=== PATIENT | female | born 1985 | race Caucasian/White ===

== ENCOUNTER 2022-10-22 12:25 | Outpatient (AMB) | payer OTHER, SELFPAY ==
--- NOTE | 2022-10-22 12:22 | AM.OFFWIN_ITS ---
Intake Vital Signs 10/22/22 12:27 Weight 191 lb BP 122/82 Blood Pressure Location Lt brachial Position Sitting Pulse 66 Pulse Source Pulse Oximeter Temp 97.7 F Temp Source Temporal Artery Scan Pulse Oximetry (%) 98 Oxygen Delivery Method Room Air Intake Visit Reasons: [employer], Left ear pain, itch Intake Note: Patient here for bilat ear pain, sharp pain, itchy she states she does not have any discharge that comes out but when she puts a qtip inside it does come out wet which has been present for about 4 days. Patient Tobacco Use Status: Current everyday Tobacco user Allergies No Known Allergies Allergy (Verified 10/22/22 12:29) Do you need a note to return to daycare/school/sports/work: No HPI HPI Comments History of Present Illness Details This is a 37-year-old otherwise healthy female who presents to the office today for sick visit. Patient complaining of bilateral otalgia but but left greater than right. She does report some mild pain located behind her left ear and some pain with opening/closing her mouth. She denies any otorrhea. She denies any fevers or chills. She denies any URI symptoms including nasal congestion/rhinorrhea, sinus congestion/pressure, sore throat, or myalgias. She is otherwise feeling well without chest pain, shortness of breath, abdominal pain, or nausea/vomiting/diarrhea. [facility] Social History Patient Tobacco Use Status: Current everyday Tobacco user Review of Systems Const All systems reviewed & are unremarkable except as noted in HPI and below Reports no additional complaints Eyes Reports no additional complaints ENT Reports no additional complaints Card Reports no additional complaints Resp Reports no additional complaints GI Reports no additional complaints Reports no additional complaints Musc Reports no additional complaints Skin/Breast Reports system reviewed and no additional complaints, except as documented Neuro Reports no additional complaints Psych Reports no additional complaints Endo Reports no additional complaints Perfecto/Lymph Reports no additional complaints Aller/Immun Reports no additional complaints Physical Exam Vital Signs: Last Vital Signs Temp 97.7 F 10/22/22 12:27 Pulse 66 10/22/22 12:27 BP 122/82 10/22/22 12:27 Pulse Ox 98 10/22/22 12:27 Oxygen Delivery Method Room Air 10/22/22 12:27 Const General: cooperative, healthy appearing, no acute distress and well developed Orientation/consciousness: patient oriented x3 HEENT Other: Right tympanic membrane and external auditory canal are within normal limits without erythema, edema, or effusions. Left tympanic membrane is bulging and erythematous and external auditory canal is erythematous and edematous. There is very mild postauricular tenderness to palpation but no postauricular erythema, swelling, fluctuance, or mass. Head: Yes normal to inspection Ears: hearing grossly normal bilaterally General nose exam: Normal external nose present Face and sinus: Yes normal facial exam Mouth: Normal oral and palatal mucosa present Eyes General: appearance normal, both eyes and all related structures Pupils: Equal, round and reactive pupils present EOM: EOMs intact bilaterally Resp Effort & Inspection: normal respiratory effort and no respiratory distress Auscultation: clear to auscultation bilaterally Cardio Rate: regular rate Rhythm: regular rhythm Heart sounds: no gallops, no murmurs and no rubs Peripheral pulses: Peripheral pulses 2+ throughout GI Inspection: No distended Palpation (GI): Soft to palpation and nontender Auscultation: normal bowel sounds Skin General skin exam: no rashes or lesions noted Neuro General: patient oriented x3 Cranial nerves: Yes CN's II-XII intact bilaterally and Yes Equal, round and reactive pupils present Gait exam (Neuro): Normal gait present Motor exam (neuro): 5/5 motor strength present throughout Extrem General: Yes normal to inspection, Yes full ROM and Yes no clubbing, cyanosis or edema Psych Appearance: grossly normal Mental Status: mental status grossly normal Assessment & Plan Assessment & Plan (1) Acute otitis media, left: Code(s): H66.92 - Otitis media, unspecified, left ear Plan: This is a 37-year-old otherwise healthy female who presents with otalgia, left greater than right. On physical examination, her left TM is erythematous and bulging in her left external auditory canal is erythematous and slightly edematous. She does have mild postauricular tenderness to palpation but no postauricular swelling, erythema, fluctuance, or mass. Acute mastoiditis was considered given postauricular tenderness to palpation but is considered significantly less likely given no swelling, erythema, fluctuance, or mass and no evidence of systemic infection. History and physical most consistent with acute otitis media of the left ear. Patient's vital signs are stable and she is overall nontoxic appearing. Patient is safe to be discharged home. She was sent home on p.o. amoxicillin-clavulanate twice daily times 10 days. Patient advised to proceed directly to the emergency room if she were to develop any fevers/chills, systemic symptoms, postauricular swelling/erythema, or worsening postauricular pain. Patient verbalized understanding and she was in agreement with the plan. Medications: New amoxicillin-pot clavulanate 875-125 mg 1 tab PO BID 20 tabs 0RF Coding Level of Care Code New Pt Level 3 (78077) Diagnoses Acute otitis media, left H66.92
[2022-10-22 12:27] VITALS: BP 122/82; PULSE 66; TEMP 36.5; O2SAT 98
== END 2022-10-22 13:01 | disposition home or self-care (01) ==
PROVIDERS: Visit Provider Physician Assistant Medical
DX: H66.92 Otitis media, unspecified, left ear (principal)
CPT/HCPCS: 99203

== ENCOUNTER 2023-03-25 12:43 | Outpatient (AMB) | payer OTHER, SELFPAY ==
--- NOTE | 2023-03-25 12:50 | MHC.OFFWIV ---
Intake Vital Signs 03/25/23 12:53 Height 5 ft 2 in Weight 191 lb BMI 34.9 BP 118/76 Blood Pressure Location Lt brachial Position Sitting Pulse 82 Pulse Source Pulse Oximeter Pulse Oximetry (%) 98 Oxygen Delivery Method Room Air Intake Visit Reasons: EP ear infection sinus throat masked in lobby Intake Note: pt is here today for ear infection sinus throat started 2 days ago Patient Tobacco Use Status: Current everyday Tobacco user Allergies No Known Allergies Allergy (Verified 03/25/23 12:56) Do you need a note to return to daycare/school/sports/work: No HPI HPI Comments History of Present Illness Details This is a 37-year-old female who presented to the office complaining of left-sided otalgia x4 days. She states that her son and daughter are sick at home with viral symptoms. She started to develop left-sided ear pain, sinus congestion, mild sore throat. She reports some chills but has not had any fevers. Is otherwise feeling well without over short of breath, abdominal pain, nausea/vomiting/diarrhea, or cough. PFSH Social History Patient Tobacco Use Status: Current everyday Tobacco user Review of Systems Const All systems reviewed & are unremarkable except as noted in HPI and below Reports no additional complaints Eyes Reports no additional complaints ENT Reports no additional complaints Card Reports no additional complaints Resp Reports no additional complaints GI Reports no additional complaints Reports no additional complaints Musc Reports no additional complaints Skin/Breast Reports system reviewed and no additional complaints, except as documented Neuro Reports no additional complaints Psych Reports no additional complaints Endo Reports no additional complaints Perfecto/Lymph Reports no additional complaints Aller/Immun Reports no additional complaints Physical Exam Vital Signs: Last Vital Signs Pulse 82 03/25/23 12:53 BP 118/76 03/25/23 12:53 Pulse Ox 98 03/25/23 12:53 Oxygen Delivery Method Room Air 03/25/23 12:53 BMI result Body Mass Index 34.9 Const Other: Vital signs reviewed. Constitutional: Non-toxic appearing. No acute distress. Well-developed and well-nourished. HEENT: Normocephalic and atraumatic. Her right tympanic membrane is clear without erythema or bulging. Her left tympanic membrane is edematous and erythematous. External auditory canals without erythema or edema bilaterally. Moist mucous membranes. Minimal posterior pharyngeal erythema but no patchy exudates. No postauricular swelling, erythema, tenderness, or mass. Skin: Warm and dry. No rashes or lesions noted. Neck: Full and painless range of motion. No cervical lymphadenopathy. Cardio: Regular rate and rhythm. No murmurs, gallops, or rubs. No lower extremity edema. No JVD. Pulmonary: No respiratory distress. No accessory muscle usage. Clear to auscultation bilaterally without wheezing, crackles, or rhonchi. Gastrointestinal: Soft, nontender, and nondistended in all 4 quadrants. Musculoskeletal: Normal range of motion in joints throughout the body. No deformity or other signs of injury. Neuro: Alert and oriented x4. Cranial nerves 2-12 grossly intact. No focal deficits appreciated. Psych: Normal mood and affect. Assessment & Plan Assessment & Plan (1) Otitis media: Code(s): H66.90 - Otitis media, unspecified, unspecified ear Qualifiers: Otitis media type: unspecified Laterality: left Qualified Code(s): H66.92 - Otitis media, unspecified, left ear Plan: This is a 37-year-old female who presented to the walk-in clinic complaining of left-sided otalgia, sore throat, sinus congestion x3 days. On physical examination, her left tympanic membrane is erythematous and edematous. History and physical most consistent with acute otitis media of the left ear. Patient sent home on p.o. amoxicillin/clavulanate 875/125 mg twice daily x5 days. Recommended symptomatic management including rest, increased fluids, advil/tylenol for pain/fever, and over the counter throat lozenges/decongestants. Patient advised to follow up here or go to the emergency room for worsening/persistent symptoms. Patient verbalized understanding and is agreeable with the plan. Medications: New amoxicillin-pot clavulanate 875-125 mg 1 tab PO BID 10 tabs 0RF Coding Level of Care Code Est Pt Level 3 (70987) Diagnoses Left otitis media, unspecified otitis media type H66.92 Otitis media type: unspecified Laterality: left
[2023-03-25 12:53] VITALS: BP 118/76; PULSE 82; O2SAT 98; BMI 34.9
== END 2023-03-25 13:53 | disposition home or self-care (01) ==
PROVIDERS: Visit Provider Physician Assistant Medical
DX: H66.92 Otitis media, unspecified, left ear (principal); J02.9 Acute pharyngitis, unspecified
CPT/HCPCS: 87880; 99213